=== PATIENT | female | born 1945 | race Caucasian/White ===

== ENCOUNTER → 2021-08-07 | Outpatient (CLI) | payer MEDICARE, OTHER | LOC: M.CT 13:15 | PROVIDERS: ATTEND Registered Nurse Diabetes Educator | DX: K44.9 Diaphragmatic hernia without obstruction or gangrene (principal); N83.292 Other ovarian cyst, left side; R11.2 Nausea with vomiting, unspecified; K59.00 Constipation, unspecified; Z90.721 Acquired absence of ovaries, unilateral ==

== ENCOUNTER → 2021-09-10 | Outpatient (CLI) | payer MEDICARE, OTHER | LOC: M.ULTRA 09:24 | PROVIDERS: ATTEND Registered Nurse Diabetes Educator | DX: N83.202 Unspecified ovarian cyst, left side (principal); Z90.710 Acquired absence of both cervix and uterus ==